=== PATIENT | female | born 1930 | race African-American/Black ===

== ENCOUNTER 2019-03-19 12:04 | Inpatient (IN) | payer MEDICARE, OTHER ==
[2019-03-19] VITALS (27 sets, daily range): BP systolic 94–136; BP diastolic 32–80
[~2019-03-19] VITALS: Ht 160 cm; Wt 63.5 kg
[2019-03-19] MEDS ORDERED: VANCOMYCIN 1 G PREMIX 200 ML IV ONE (13:00)
[2019-03-19] MEDS ORDERED: PIPERACILLIN/TAZ 3.375G PREMIX 50 ML IV ONE (13:00)
[2019-03-19] MEDS ORDERED: ACETAMINOPHEN 650MG SUPP PR STA (13:00)
[2019-03-19] MEDS ORDERED: SODIUM CHLORIDE 0.9% 1000ML BAG (SEPSIS BOLUS) IV ONE (13:00)
[2019-03-19 13:35] LABS: HEMATOCRIT. 29.2 % (36.0-48.0); HEMOGLOBIN. 9.6 g/dL (12.0-16.0); MEAN CORPUSCULAR HEMOGLOBIN 24.8 pg (28.0-32.0); MEAN CORPUSCULAR VOLUME 75.2 fL (81.0-99.0); MEAN PLATELET VOLUME 9.4 fl (7.4-10.4); PLATELET 203 x1000/uL (130-400); RED BLOOD CELL COUNT 3.88 mill/uL (4.2-5.4); RED CELL DISTRIBUTION WIDTH 15.5 % (11.6-14.6)
[2019-03-19 13:39] LABS: INR 1.2; PROTHROMBIN TIME 12.1 sec (9.6-11.0)
[2019-03-19 13:40] LABS: CHLORIDE 96 mEq/L (98-107)
[2019-03-19 14:04] LABS: CLARITY URINE CLOUDY (CLEAR); COLOR URINE DARK YELLOW (YELLOW); KETONES URINE NEGATIVE (NEGATIVE); LEUKOCYTE ESTERASE URINE NEGATIVE (NEGATIVE); NITRITE URINE NEGATIVE (NEGATIVE); OCCULT BLOOD URINE 2+ (NEGATIVE); PROTEIN URINE 1+ (NEGATIVE); SPECIFIC GRAVITY URINE 1.015 (1.005-1.030)
[2019-03-19] MEDS ORDERED: NOREPINEPHRINE 4MG/250ML PMX 250 ML IV ONE (14:15)
[2019-03-19] MEDS ORDERED: NOREPINEPHRINE 4 MG in DEXT 5% WATER 246 ML IV ONE (14:15)
[2019-03-19 14:31] LABS: PLATELET ESTIMATE NORMAL
[2019-03-19] MEDS ORDERED: ETOMIDATE 2MG/ML 10ML VIAL IV ONE (14:51)
[2019-03-19] MEDS ORDERED: SUCCINYLCHOLINE CHLORIDE 200MG/10ML IV ONE (14:51)
[2019-03-19] MEDS ORDERED: ASPIRIN 81MG TABLET PO ONE (15:30)
[2019-03-19] MEDS ORDERED: ONDANSETRON HCL 4MG/2ML INJ IV PRN (16:30)
[2019-03-19] MEDS ORDERED: NA PHOS,M-B/NA PHOS,DI-BA ENEMA 118ML PR PRN (16:30)
[2019-03-19] MEDS ORDERED: GUAIFENESIN 200MG/10ML SUGAR FREE UDC PO PRN (16:30)
[2019-03-19] MEDS ORDERED: ACETAMINOPHEN 325MG TABLET PO PRN (16:30)
[2019-03-19] MEDS ORDERED: DIPHENHYDRAMINE 50MG/ML VIAL IV PRN (16:30)
[2019-03-19] MEDS ORDERED: MAGNESIUM/ALUMINUM HYDROXIDE/SIMETHICONE 30ML UDC PO PRN (16:30)
[2019-03-19] MEDS ORDERED: DOCUSATE SODIUM 100MG CAPSULE PO PRN (16:30)
[2019-03-19] MEDS ORDERED: LORAZEPAM 0.5MG TABLET PO PRN (16:30)
[2019-03-19] MEDS ORDERED: IPRATROPIUM/ALBUTEROL 0.5-3(2.5)MG/3ML NEB INH PRN (16:30)
[2019-03-19] MEDS ORDERED: CLONIDINE 0.1MG TABLET PO PRN (16:30)
[2019-03-19] MEDS ORDERED: ACETAMINOPHEN 650MG SUPP PR PRN (16:30)
[2019-03-19] MEDS ORDERED: HYDROCODONE/ACETAMINOPHEN 5/325MG TABLET PO PRN (16:30)
[2019-03-19 17:19] LABS: BG BASE EXCESS -2.3 mmol/L (-2.0-2.0); BG CARBOXYHEMOGLOBIN 0.6 % (0.5-1.5); BG DEOXYHEMOGLOBIN 0.2 % (0.0-5.0); BG HCO3 ACT 21.7 mmol/L (22.0-26.0); BG METHEMOGLOBIN 0.4 % (0.0-1.5); BG OXYGEN SATURATION 99.8 % (92.0-98.5); BG OXYHEMOGLOBIN 98.8 % (94.0-97.0); BG PCO2 34.2 mmHg (35.0-45.0); BG PO2 470.8 mmHg (75.0-100.0); BG SAMPLE SITE RIGHT BRACHIAL; BG TIDAL VOLUME(mL) 450 mL; BG TOTAL HEMOGLOBIN 10.4 g/dL (12.0-18.0); BG VENT MODE VENT - A/C; BG VENT RATE 16 set
[2019-03-19] MEDS ORDERED: LIDOCAINE HCL/PF 1% 10 MG/ML 5ML VIAL IJ ONE (18:00)
[2019-03-19] MEDS ORDERED: SODIUM POLYSTYRENE SULFONATE 15 G/60 ML BOT PO ONE (18:00)
[2019-03-19] MEDS: DEXT 5%/0.9% NACL 1,000 ML IV SCH (18:04)
[2019-03-19] MEDS: PIPERACILLIN/TAZ 2.25G PREMIX 50 ML IV SCH ×2 (19:46→22:58)
[2019-03-19] MEDS: IPRATROPIUM/ALBUTEROL 0.5-3(2.5)MG/3ML NEB INH SCH (20:07)
[2019-03-19 22:51] LABS: CREATINE KINASE 1215 IU/L (26-192)
[2019-03-19] MEDS: METRONIDAZOLE 500MG TABLET PO SCH (22:57)
[2019-03-20] VITALS (84 sets, daily range): BP systolic 86–125; BP diastolic 35–71
[2019-03-20] MEDS: NOREPINEPHRINE 8 MG in DEXT 5% WATER 492 ML IV PRN (00:37)
[2019-03-20] MEDS: VANCOMYCIN 750 MG PREMIX 150 ML IV SCH ×2 (01:39→20:50)
[2019-03-20] MEDS: IPRATROPIUM/ALBUTEROL 0.5-3(2.5)MG/3ML NEB INH SCH ×4 (02:12→20:39)
[2019-03-20 05:07] LABS: BASOPHILS % 0.1 % (0.0-2.0); HEMATOCRIT. 29.3 % (36.0-48.0); HEMOGLOBIN. 9.9 g/dL (12.0-16.0); LYMPHOCYTES % 18.7 % (20.0-50.0); MEAN CORPUSCULAR HEMOGLOBIN 25.7 pg (28.0-32.0); MEAN CORPUSCULAR VOLUME 75.7 fL (81.0-99.0); MEAN PLATELET VOLUME 9.1 fl (7.4-10.4); MONOCYTES % 3.2 % (2.0-8.0); PLATELET 140 x1000/uL (130-400); RED BLOOD CELL COUNT 3.86 mill/uL (4.2-5.4); RED CELL DISTRIBUTION WIDTH 15.4 % (11.6-14.6)
[2019-03-20 05:17] LABS: CHLORIDE 102 mEq/L (98-107)
[2019-03-20 05:27] LABS: LDL CHOLESTEROL 43 mg/dL (5-100)
[2019-03-20 05:28] LABS: T4 FREE 1.32 ng/dL (0.76-1.46)
[2019-03-20 05:29] LABS: HDL CHOLESTEROL 11 mg/dL (40-59)
[2019-03-20] MEDS: METRONIDAZOLE 500MG TABLET PO SCH ×3 (05:32→21:24)
[2019-03-20] MEDS: PIPERACILLIN/TAZ 2.25G PREMIX 50 ML IV SCH ×4 (05:32→23:59)
[2019-03-20 07:08] LABS: CREATINE KINASE MB FRACTION 7.7 ng/mL (0.5-3.6)
[2019-03-20] MEDS: ENOXAPARIN 30MG/0.3ML SYR SUBCUT SCH (09:34)
[2019-03-20] MEDS: DEXT 5%/0.9% NACL 1,000 ML IV SCH ×2 (09:35→20:50)
[2019-03-20] MEDS: ASPIRIN 81MG EC TABLET PO SCH (09:35)
[2019-03-20] MEDS ORDERED: POTASSIUM CHLORIDE INJ 40 MEQ in DEXT 5% WATER 250 ML IV NR (10:00)
[2019-03-20 10:22] LABS: BG BASE EXCESS -1.3 mmol/L (-2.0-2.0); BG CARBOXYHEMOGLOBIN 0.4 % (0.5-1.5); BG DEOXYHEMOGLOBIN 0.7 % (0.0-5.0); BG FRACTION INSPIRED OXYGEN 50; BG HCO3 ACT 21.7 mmol/L (22.0-26.0); BG METHEMOGLOBIN 1.4 % (0.0-1.5); BG OXYGEN SATURATION 99.3 % (92.0-98.5); BG OXYHEMOGLOBIN 97.5 % (94.0-97.0); BG PCO2 30.4 mmHg (35.0-45.0); BG PH 7.472 (7.350-7.450); BG PO2 272.9 mmHg (75.0-100.0); BG SAMPLE SITE RIGHT BRACHIAL; BG TIDAL VOLUME(mL) 450 mL; BG TOTAL HEMOGLOBIN 9.6 g/dL (12.0-18.0); BG VENT MODE VENT - A/C; BG VENT RATE 14 set
[2019-03-20] MEDS ORDERED: SODIUM CHLORIDE 0.9% 500 ML IV ONE (13:45)
[2019-03-20] MEDS: ASCORBIC ACID 500 MG TABLET NG SCH (21:23)
[2019-03-21] VITALS (96 sets, daily range): BP systolic 82–120; BP diastolic 33–68
[2019-03-21] MEDS: NOREPINEPHRINE 8 MG in DEXT 5% WATER 492 ML IV PRN ×2
[2019-03-21] MEDS: IPRATROPIUM/ALBUTEROL 0.5-3(2.5)MG/3ML NEB INH SCH ×4 (02:41→20:15)
[2019-03-21] MEDS: METRONIDAZOLE 500MG TABLET PO SCH ×3 (05:23→21:19)
[2019-03-21] MEDS: DEXT 5%/0.9% NACL 1,000 ML IV SCH ×2 (05:23→14:57)
[2019-03-21] MEDS: PIPERACILLIN/TAZ 2.25G PREMIX 50 ML IV SCH ×5 (05:23→23:06)
[2019-03-21 05:41] LABS: HEMOGLOBIN. 8.8 g/dL (12.0-16.0); MEAN CORPUSCULAR HEMOGLOBIN 24.7 pg (28.0-32.0); MEAN CORPUSCULAR VOLUME 75.7 fL (81.0-99.0); MEAN PLATELET VOLUME 10.1 fl (7.4-10.4); PLATELET 134 x1000/uL (130-400); RED BLOOD CELL COUNT 3.56 mill/uL (4.2-5.4); RED CELL DISTRIBUTION WIDTH 15.6 % (11.6-14.6)
[2019-03-21 06:43] LABS: CHLORIDE 103 mEq/L (98-107)
[2019-03-21] MEDS ORDERED: POTASSIUM CHLORIDE 20MEQ/PACKET PO NR (07:30)
[2019-03-21 08:22] LABS: PLATELET ESTIMATE NORMAL
[2019-03-21 09:37] LABS: BG BASE EXCESS -5.6 mmol/L (-2.0-2.0); BG CARBOXYHEMOGLOBIN 1.3 % (0.5-1.5); BG DEOXYHEMOGLOBIN 0.5 % (0.0-5.0); BG FRACTION INSPIRED OXYGEN 50; BG HCO3 ACT 18.1 mmol/L (22.0-26.0); BG METHEMOGLOBIN 0.5 % (0.0-1.5); BG OXYGEN SATURATION 99.5 % (92.0-98.5); BG OXYHEMOGLOBIN 97.7 % (94.0-97.0); BG PCO2 28.6 mmHg (35.0-45.0); BG PO2 228.5 mmHg (75.0-100.0); BG SAMPLE SITE RIGHT RADIAL; BG TIDAL VOLUME(mL) 450 mL; BG TOTAL HEMOGLOBIN 7.8 g/dL (12.0-18.0); BG VENT MODE VENT - A/C; BG VENT RATE 14 set
[2019-03-21] MEDS: ZINC SULFATE 220 MG ( 50 ) CAPSULE NG SCH (09:41)
[2019-03-21] MEDS: ASCORBIC ACID 500 MG TABLET NG SCH ×2 (09:41→20:05)
[2019-03-21] MEDS: ASPIRIN 81MG EC TABLET PO SCH (09:41)
[2019-03-21] MEDS: ENOXAPARIN 30MG/0.3ML SYR SUBCUT SCH (09:55)
[2019-03-21] MEDS ORDERED: POTASSIUM CHLORIDE INJ 40 MEQ in DEXT 5% WATER 250 ML IV ONE (10:15)
[2019-03-21] MEDS ORDERED: SODIUM CHLORIDE 0.9% 500 ML IV ONE (11:45)
[2019-03-21] MEDS ORDERED: ENOXAPARIN 30MG/0.3ML SYR SUBCUT SCH (11:45)
[2019-03-21] MEDS ORDERED: SODIUM CHLORIDE 0.9% 500 ML IV PRN (15:00)
[2019-03-21] MEDS: VANCOMYCIN 750 MG PREMIX 150 ML IV SCH (20:05)
[2019-03-22] VITALS (94 sets, daily range): BP systolic 91–133; BP diastolic 34–65
[2019-03-22] MEDS: DEXT 5%/0.9% NACL 1,000 ML IV SCH ×3 (00:40→20:57)
[2019-03-22] MEDS: IPRATROPIUM/ALBUTEROL 0.5-3(2.5)MG/3ML NEB INH SCH ×4 (02:22→20:06)
[2019-03-22] MEDS: NOREPINEPHRINE 8 MG in DEXT 5% WATER 492 ML IV PRN (04:29)
[2019-03-22] MEDS: METRONIDAZOLE 500MG TABLET PO SCH ×3 (05:34→23:22)
[2019-03-22] MEDS: PIPERACILLIN/TAZ 2.25G PREMIX 50 ML IV SCH ×4 (05:34→23:22)
[2019-03-22 05:55] LABS: HEMATOCRIT. 23.7 % (36.0-48.0); HEMOGLOBIN. 7.7 g/dL (12.0-16.0); MEAN CORPUSCULAR HEMOGLOBIN 24.7 pg (28.0-32.0); MEAN PLATELET VOLUME 10.5 fl (7.4-10.4); PLATELET 133 x1000/uL (130-400); RED BLOOD CELL COUNT 3.12 mill/uL (4.2-5.4)
[2019-03-22 06:03] LABS: CHLORIDE 109 mEq/L (98-107)
[2019-03-22 08:48] LABS: BG BASE EXCESS -2.8 mmol/L (-2.0-2.0); BG CARBOXYHEMOGLOBIN 0.6 % (0.5-1.5); BG DEOXYHEMOGLOBIN 0.6 % (0.0-5.0); BG FRACTION INSPIRED OXYGEN 50; BG METHEMOGLOBIN 0.2 % (0.0-1.5); BG OXYGEN SATURATION 99.4 % (92.0-98.5); BG OXYHEMOGLOBIN 98.6 % (94.0-97.0); BG PCO2 32.2 mmHg (35.0-45.0); BG PH 7.433 (7.350-7.450); BG PO2 221.2 mmHg (75.0-100.0); BG SAMPLE SITE RIGHT BRACHIAL; BG TIDAL VOLUME(mL) 450 mL; BG TOTAL HEMOGLOBIN 8.2 g/dL (12.0-18.0); BG VENT MODE VENT - A/C; BG VENT RATE 14 set
[2019-03-22] MEDS ORDERED: POTASSIUM CHLORIDE INJ 50 MEQ in DEXT 5% WATER 500 ML IV SCH (09:00)
[2019-03-22] MEDS: ASPIRIN 81MG EC TABLET PO SCH (09:31)
[2019-03-22] MEDS: ZINC SULFATE 220 MG ( 50 ) CAPSULE NG SCH (09:32)
[2019-03-22] MEDS: ENOXAPARIN 60MG/0.6ML SYR SUBCUT SCH (09:32)
[2019-03-22] MEDS: ASCORBIC ACID 500 MG TABLET NG SCH ×2 (09:32→20:57)
[2019-03-22] MEDS: SODIUM HYPOCHLORITE (0.25%) 480ML SOLUTION (HALF STRENGTH) TOP SCH (09:33)
[2019-03-22 16:09] LABS: CHLORIDE 109 mEq/L (98-107)
[2019-03-22 17:35] LABS: PLATELET ESTIMATE NORMAL
[2019-03-22] MEDS: VANCOMYCIN 750 MG PREMIX 150 ML IV SCH (20:56)
[2019-03-23] VITALS (73 sets, daily range): BP systolic 89–133; BP diastolic 38–65
[2019-03-23] MEDS: IPRATROPIUM/ALBUTEROL 0.5-3(2.5)MG/3ML NEB INH SCH ×4 (01:53→20:13)
[2019-03-23 05:41] LABS: HEMATOCRIT. 24.6 % (36.0-48.0); HEMOGLOBIN. 7.9 g/dL (12.0-16.0); MEAN CORPUSCULAR HEMOGLOBIN 24.6 pg (28.0-32.0); MEAN CORPUSCULAR VOLUME 77.1 fL (81.0-99.0); MEAN PLATELET VOLUME 10.7 fl (7.4-10.4); PLATELET 138 x1000/uL (130-400); RED BLOOD CELL COUNT 3.19 mill/uL (4.2-5.4); RED CELL DISTRIBUTION WIDTH 16.6 % (11.6-14.6)
[2019-03-23 06:00] LABS: CHLORIDE 110 mEq/L (98-107)
[2019-03-23] MEDS: PIPERACILLIN/TAZ 2.25G PREMIX 50 ML IV SCH ×3 (06:07→18:44)
[2019-03-23] MEDS: METRONIDAZOLE 500MG TABLET PO SCH ×3 (06:07→21:29)
[2019-03-23] MEDS: DEXT 5%/0.9% NACL 1,000 ML IV SCH ×2 (07:10→21:30)
[2019-03-23] MEDS: SODIUM HYPOCHLORITE (0.25%) 480ML SOLUTION (HALF STRENGTH) TOP SCH (09:00)
[2019-03-23] MEDS: ASCORBIC ACID 500 MG TABLET NG SCH ×2 (10:07→21:29)
[2019-03-23] MEDS: ZINC SULFATE 220 MG ( 50 ) CAPSULE NG SCH (10:07)
[2019-03-23] MEDS: ASPIRIN 81MG EC TABLET PO SCH (10:07)
[2019-03-23] MEDS: ENOXAPARIN 60MG/0.6ML SYR SUBCUT SCH (10:07)
[2019-03-23] MEDS ORDERED: SULFAMETHOXAZOLE/TRIMETHOPRIM 200MG/40MG PER 5ML NG SCH (11:00)
[2019-03-23 12:30] LABS: BG BASE EXCESS -4.3 mmol/L (-2.0-2.0); BG CARBOXYHEMOGLOBIN 0.6 % (0.5-1.5); BG DEOXYHEMOGLOBIN 0.9 % (0.0-5.0); BG HCO3 ACT 19.5 mmol/L (22.0-26.0); BG METHEMOGLOBIN 0.3 % (0.0-1.5); BG OXYGEN SATURATION 99.1 % (92.0-98.5); BG OXYHEMOGLOBIN 98.2 % (94.0-97.0); BG PCO2 30.6 mmHg (35.0-45.0); BG PH 7.423 (7.350-7.450); BG SAMPLE SITE RIGHT RADIAL; BG TIDAL VOLUME(mL) 450 mL; BG TOTAL HEMOGLOBIN 7.7 g/dL (12.0-18.0); BG VENT MODE VENT - A/C; BG VENT RATE 14 set
[2019-03-23 12:43] LABS: PLATELET ESTIMATE NORMAL
[2019-03-23] MEDS ORDERED: POTASSIUM CHLORIDE 20MEQ/PACKET PO NR (13:30)
[2019-03-23] MEDS ORDERED: POTASSIUM CHLORIDE INJ 40 MEQ in DEXT 5% WATER 250 ML IV NR (14:30)
[2019-03-23] MEDS: CEFAZOLIN 2,000 MG in DEXT 5% WATER 100 ML IV SCH ×2 (15:00→21:29)
[2019-03-23] MEDS ORDERED: SULFAMETHOXAZOLE/TRIMETHOPRIM 800/160MG TABLET PO SCH (21:00)
[2019-03-23] MEDS ORDERED: SULFAMETHOXAZOLE/TRIMETHOPRIM 400/80MG TAB NG SCH (21:00)
[2019-03-24] VITALS (93 sets, daily range): BP systolic 90–134; BP diastolic 35–77
[2019-03-24 00:18] LABS: HEMATOCRIT 22.3 % (36.0-48.0); HEMOGLOBIN 7.3 g/dL (12.0-16.0)
[2019-03-24] MEDS: PIPERACILLIN/TAZ 2.25G PREMIX 50 ML IV SCH ×5 (00:26→23:56)
[2019-03-24 05:56] LABS: HEMATOCRIT 21.7 % (36.0-48.0); MEAN CORPUSCULAR HEMOGLOBIN 24.5 pg (28.0-32.0); MEAN CORPUSCULAR VOLUME 76.3 fL (81.0-99.0); PLATELET 159 x1000/uL (130-400); RED BLOOD CELL COUNT 2.84 mill/uL (4.2-5.4); RED CELL DISTRIBUTION WIDTH 16.5 % (11.6-14.6)
[2019-03-24 06:16] LABS: CHLORIDE 115 mEq/L (98-107)
[2019-03-24] MEDS: CEFAZOLIN 2,000 MG in DEXT 5% WATER 100 ML IV SCH ×3 (06:19→21:49)
[2019-03-24] MEDS: METRONIDAZOLE 500MG TABLET PO SCH ×3 (06:19→21:51)
[2019-03-24 06:35] LABS: CREATINE KINASE 45 IU/L (26-192)
[2019-03-24] MEDS: IPRATROPIUM/ALBUTEROL 0.5-3(2.5)MG/3ML NEB INH SCH ×3 (07:55→20:31)
[2019-03-24] MEDS: ASCORBIC ACID 500 MG TABLET NG SCH ×2 (08:19→20:40)
[2019-03-24] MEDS: ZINC SULFATE 220 MG ( 50 ) CAPSULE NG SCH (08:19)
[2019-03-24] MEDS: SODIUM HYPOCHLORITE (0.25%) 480ML SOLUTION (HALF STRENGTH) TOP SCH (08:21)
[2019-03-24 08:25] LABS: BG BASE EXCESS -4.6 mmol/L (-2.0-2.0); BG CARBOXYHEMOGLOBIN 1.2 % (0.5-1.5); BG DEOXYHEMOGLOBIN 1.1 % (0.0-5.0); BG FRACTION INSPIRED OXYGEN 40; BG HCO3 ACT 19.3 mmol/L (22.0-26.0); BG METHEMOGLOBIN 0.3 % (0.0-1.5); BG OXYGEN SATURATION 98.9 % (92.0-98.5); BG OXYHEMOGLOBIN 97.4 % (94.0-97.0); BG PCO2 30.6 mmHg (35.0-45.0); BG PH 7.418 (7.350-7.450); BG SAMPLE SITE RIGHT RADIAL; BG TIDAL VOLUME(mL) 450 mL; BG TOTAL HEMOGLOBIN 7.2 g/dL (12.0-18.0); BG VENT MODE VENT - A/C; BG VENT RATE 14 set
[2019-03-24] MEDS: ASPIRIN 81MG EC TABLET PO SCH (09:00)
[2019-03-24] MEDS: DEXT 5%/0.9% NACL 1,000 ML IV SCH (16:55)
[2019-03-25] VITALS (91 sets, daily range): BP systolic 97–134; BP diastolic 45–78
[2019-03-25] MEDS: IPRATROPIUM/ALBUTEROL 0.5-3(2.5)MG/3ML NEB INH SCH ×4 (02:57→21:12)
[2019-03-25] MEDS: PIPERACILLIN/TAZ 2.25G PREMIX 50 ML IV SCH ×3 (06:27→17:34)
[2019-03-25] MEDS: METRONIDAZOLE 500MG TABLET PO SCH ×2 (06:28→13:21)
[2019-03-25] MEDS: CEFAZOLIN 2,000 MG in DEXT 5% WATER 100 ML IV SCH ×3 (06:28→21:48)
[2019-03-25 07:22] LABS: HEMATOCRIT. 25.6 % (36.0-48.0); HEMOGLOBIN. 8.4 g/dL (12.0-16.0); MEAN CORPUSCULAR HEMOGLOBIN 25.6 pg (28.0-32.0); MEAN CORPUSCULAR VOLUME 78.3 fL (81.0-99.0); MEAN PLATELET VOLUME 11.5 fl (7.4-10.4); PLATELET 186 x1000/uL (130-400); RED BLOOD CELL COUNT 3.26 mill/uL (4.2-5.4); RED CELL DISTRIBUTION WIDTH 18.7 % (11.6-14.6)
[2019-03-25 08:17] LABS: CHLORIDE 115 mEq/L (98-107)
[2019-03-25] MEDS: ASCORBIC ACID 500 MG TABLET NG SCH ×2 (08:25→21:48)
[2019-03-25] MEDS: ASPIRIN 81MG EC TABLET PO SCH (08:25)
[2019-03-25] MEDS: ZINC SULFATE 220 MG ( 50 ) CAPSULE NG SCH (08:25)
[2019-03-25] MEDS: SODIUM HYPOCHLORITE (0.25%) 480ML SOLUTION (HALF STRENGTH) TOP SCH (08:26)
[2019-03-25 09:35] LABS: BG BASE EXCESS -4.5 mmol/L (-2.0-2.0); BG CARBOXYHEMOGLOBIN 0.9 % (0.5-1.5); BG DEOXYHEMOGLOBIN 1.1 % (0.0-5.0); BG FRACTION INSPIRED OXYGEN 40; BG HCO3 ACT 19.2 mmol/L (22.0-26.0); BG METHEMOGLOBIN 0.2 % (0.0-1.5); BG OXYGEN SATURATION 98.9 % (92.0-98.5); BG OXYHEMOGLOBIN 97.8 % (94.0-97.0); BG PCO2 29.7 mmHg (35.0-45.0); BG PH 7.428 (7.350-7.450); BG PO2 149.2 mmHg (75.0-100.0); BG SAMPLE SITE RIGHT FEMORAL; BG TIDAL VOLUME(mL) 450 mL; BG TOTAL HEMOGLOBIN 8.5 g/dL (12.0-18.0); BG VENT MODE VENT - A/C; BG VENT RATE 14 set
[2019-03-25 10:37] LABS: PLATELET ESTIMATE NORMAL
[2019-03-25] MEDS: DEXT 5%/0.9% NACL 1,000 ML IV SCH (11:56)
[2019-03-25] MEDS ORDERED: METRONIDAZOLE 500MG TABLET PO SCH (22:00)
== END 2019-03-25 23:30 | disposition short-term general hospital (02) | DRG 853 ==
LOC: ER 12:04 → EDBEDREQSVC 14:43 → MICUNO 15:25 → EDBEDREQ 15:29 → ENRESERV 15:37
PROVIDERS: ADMIT Internal Medicine; ATTEND Internal Medicine
PROC: 5A1955Z Respiratory Ventilation, Greater than 96 Consecutive Hours (ICD-10-PCS; principal; 2019-03-19)
PROC: 0BH18EZ Insertion of Endotracheal Airway into Trachea, Via Natural or Artificial Opening Endoscopic (ICD-10-PCS; 2019-03-19)
PROC: 02HV33Z Insertion of Infusion Device into Superior Vena Cava, Percutaneous Approach (ICD-10-PCS; 2019-03-19)
PROC: B5181ZA Fluoroscopy of Superior Vena Cava using Low Osmolar Contrast, Guidance (ICD-10-PCS; 2019-03-19)
PROC: B548ZZA Ultrasonography of Superior Vena Cava, Guidance (ICD-10-PCS; 2019-03-19)
PROC: 0KBP0ZZ Excision of Left Hip Muscle, Open Approach (ICD-10-PCS; 2019-03-20)
PROC: 30233N1 Transfusion of Nonautologous Red Blood Cells into Peripheral Vein, Percutaneous Approach (ICD-10-PCS; 2019-03-24)
DX: A41.01 Sepsis due to Methicillin susceptible Staphylococcus aureus (principal); R65.21 Severe sepsis with septic shock; K72.00 Acute and subacute hepatic failure without coma; I21.4 Non-ST elevation (NSTEMI) myocardial infarction; J18.1 Lobar pneumonia, unspecified organism; G93.40 Encephalopathy, unspecified; E87.2 Acidosis; A04.72 Enterocolitis due to Clostridium difficile, not specified as recurrent; I82.412 Acute embolism and thrombosis of left femoral vein; M86.9 Osteomyelitis, unspecified; N39.0 Urinary tract infection, site not specified; I25.2 Old myocardial infarction; D64.9 Anemia, unspecified; E87.5 Hyperkalemia; E11.51 Type 2 diabetes mellitus with diabetic peripheral angiopathy without gangrene; E11.69 Type 2 diabetes mellitus with other specified complication; E86.0 Dehydration; E87.6 Hypokalemia; F03.90 Unspecified dementia, unspecified severity, without behavioral disturbance, psychotic disturbance, mood disturbance, and anxiety; H54.7 Unspecified visual loss; I70.201 Unspecified atherosclerosis of native arteries of extremities, right leg; L89.159 Pressure ulcer of sacral region, unspecified stage; I10 Essential (primary) hypertension; Z79.899 Other long term (current) drug therapy
CPT/HCPCS: 31500; 36415; 36569; 36573; 36600; 71045; 71250; 74176; 80048; 80061; 80202; 82140; 82375; 82550; 82553; 82805; 82962; 83036; 83605; 83735; 84439; 84443; 84484; 85014; 85018; 85027; 85651; 86140; 86850; 86900; 86920; 87045; 87070; 87077; 87449; 87493; 89055; 93005; 93306; 93923; 93970; 94002; 94003; 94640; 96374; 96375; 99285; A6261; C1725; J0330; J0690; J1650; J2543; J3370; J3480; J3490; J7030; J7040; J7042; J7050; J7060; J7620; P9021